=== PATIENT | male | born 2000 | race Caucasian/White ===

== ENCOUNTER 2023-05-07 07:59 | Outpatient (RCR) | payer OTHER, SELFPAY | END 2023-06-13 14:36 | disposition home or self-care (01) | LOC: HO.WCC 07:59 | PROVIDERS: PCP Internal Medicine; Referring Provider Nurse Practitioner Adult Health; Visit Provider Physician Assistant | DX: L98.492 Non-pressure chronic ulcer of skin of other sites with fat layer exposed (principal); L30.9 Dermatitis, unspecified; L72.11 Pilar cyst | CPT/HCPCS: 17250; 97602; 99212 ==

== ENCOUNTER 2024-04-28 07:34 | Outpatient (RCR) | payer OTHER, SELFPAY | END 2024-06-27 14:11 | disposition home or self-care (01) | LOC: HO.WCC 07:34 | PROVIDERS: PCP Internal Medicine; Visit Provider Surgery | DX: L05.01 Pilonidal cyst with abscess (principal); S31.000A Unspecified open wound of lower back and pelvis without penetration into retroperitoneum, initial encounter; X58.XXXA Exposure to other specified factors, initial encounter; Y93.9 Activity, unspecified; Y92.9 Unspecified place or not applicable; Y99.9 Unspecified external cause status | CPT/HCPCS: 17250 ==